=== PATIENT | male | born 1950 | race Caucasian/White ===

== ENCOUNTER 2020-11-25 17:57 | Inpatient (IN) | payer BC, MEDICARE ==
[~2020-11-25] VITALS: Ht 180.3 cm; Wt 109.1 kg
[~2020-11-25 17:57] MED LIST: GLIM2TAB6 PO; LISI-644 PO; METF-438 PO
[2020-11-25 18:46] LABS: BASOPHILS # (AUTO) 0.1 X10'3 (0-0.2); BASOPHILS % (AUTO) 0.7 % (0-1); EOSINOPHILS # (AUTO) 0.2 X10'3 (0-0.9); EOSINOPHILS % (AUTO) 1.9 % (0-6); HEMATOCRIT 22.5 % (42.0-52.0); HEMOGLOBIN 7.2 g/dl (14.0-17.9); LYMPHOCYTES # (AUTO) 1.8 X10'3 (1.1-4.8); LYMPHOCYTES % (AUTO) 22.4 % (21-51); MEAN CORPUSCULAR HEMOGLOBIN 28.3 PG (27.0-31.0); MEAN CORPUSCULAR HGB CONC 32.1 g/dL (33.0-36.5); MEAN CORPUSCULAR VOLUME 88.1 FL (78-98); MEAN PLATELET VOLUME 8.6 FL (7.4-10.4); MONOCYTES # (AUTO) 0.6 X10'3 (0-0.9); NEUTROPHILS # (AUTO) 5.5 X10'3 (1.8-7.7); PLATELET COUNT 284 X10'3 (140-440); RED BLOOD COUNT 2.55 X10'6 (4.70-6.10); RED CELL DISTRIBUTION WIDTH 15.1 % (11.5-14.5); WHITE BLOOD COUNT 8.1 X10'3 (4.5-11.0)
[2020-11-25 19:04] LABS: ALANINE AMINOTRANSFERASE 14 U/L (12-78); ALBUMIN 2.9 G/DL (3.4-5.0); ALBUMIN/GLOBULIN RATIO 0.8 (1.1-1.5); ALKALINE PHOSPHATASE 88 IU/L (46-116); ANION GAP 11 (8-16); ASPARTATE AMINO TRANSFERASE 8 U/L (10-37); BILIRUBIN,TOTAL 0.2 MG/DL (0.1-1.0); BLOOD UREA NITROGEN 26 MG/DL (7-18); BUN/CREATININE RATIO 17.3 (5.4-32.0); CALCIUM 8.1 MG/DL (8.5-10.1); CHLORIDE 104 MMOL/L (99-107); GLUCOSE 328 MG/DL (70-104); POTASSIUM 4.8 MMOL/L (3.5-5.1); SODIUM 138 MMOL/L (135-145); TOTAL CARBON DIOXIDE 23.4 MMOL/L (24-32); TOTAL PROTEIN 6.5 G/DL (6.4-8.2); eGFR 46 ML/MIN
[2020-11-25] MEDS ORDERED: pantoprazole 40 MG vial IV ONE (21:15)
[2020-11-25] MEDS ORDERED: pantoprazole 40MG/NS 100ML BAG 100 ML IV SCH (21:15)
[2020-11-25] MEDS ORDERED: normal saline 1000ml 1,000 ML IV ONE (21:15)
[2020-11-25] MEDS: pantoprazole 40MG/NS 100ML BAG 100 ML IV SCH (22:35)
[2020-11-25] MEDS ORDERED: MESSAGE TO PHARMACY PO ONE (22:50)
[2020-11-25] MEDS ORDERED: dextrose 50%-water 50ml dispensing syringe IV PRN ×2 (22:50)
[2020-11-25] MEDS: normal saline 1000ml 1,000 ML IV SCH (22:50)
[2020-11-25] MEDS ORDERED: insulin Lispro (HumaLOG) vial - multi-dose SQ SCH (22:50)
[2020-11-25] MEDS ORDERED: acetaminophen 325mg tablet PO PRN ×2 (22:50)
[2020-11-25] MEDS ORDERED: glucagon, human recombinant 1mg kit SUBCUT PRN (22:50)
[2020-11-25] MEDS ORDERED: magnesium hydroxide 30ml (MOM) UD suspension PO PRN (22:50)
[2020-11-25] MEDS ORDERED: HYDROcodone/acetaminophen 5mg/325mg tablet PO PRN (22:50)
[2020-11-25] MEDS ORDERED: mag hydrox/Alum hydrox/simeth 30ml oral suspension PO PRN (22:50)
[2020-11-25] MEDS ORDERED: ondansetron/PF 4mg/2ml inj IV PRN (22:50)
[2020-11-25] MEDS ORDERED: dextrose ORAL solution 15 GM/59 ML bottle PO PRN ×2 (22:50)
[2020-11-25] MEDS ORDERED: morphine 2 MG/ML inj. syringe IV PRN ×2 (22:50)
[2020-11-25 23:50] VITALS: BP 124/58
[2020-11-26] VITALS (9 sets, daily range): BP systolic 112–142; BP diastolic 57–70
[2020-11-26] MEDS ORDERED: CARV3.122 PO (00:12)
[2020-11-26] MEDS ORDERED: LISI40TA13 PO ×2 (00:12→14:35)
[2020-11-26] MEDS ORDERED: ASPI-1265 PO (00:12)
[2020-11-26] MEDS ORDERED: ATOR20TA66 PO (00:12)
[2020-11-26] MEDS ORDERED: TERB250T89 PO (00:12)
[2020-11-26] MEDS: pantoprazole 40MG/NS 100ML BAG 100 ML IV SCH ×3 (01:00→09:10)
[2020-11-26 05:51] LABS: OCCULT BLOOD STOOL POSITIVE (Neg)
[2020-11-26 05:57] LABS: BASOPHILS % (AUTO) 0.6 % (0-1); EOSINOPHILS # (AUTO) 0.1 X10'3 (0-0.9); HEMOGLOBIN 7.4 g/dl (14.0-17.9); LYMPHOCYTES # (AUTO) 1.7 X10'3 (1.1-4.8); MEAN CORPUSCULAR HEMOGLOBIN 28.9 PG (27.0-31.0); MEAN CORPUSCULAR HGB CONC 33.7 g/dL (33.0-36.5); MEAN CORPUSCULAR VOLUME 85.7 FL (78-98); MEAN PLATELET VOLUME 7.9 FL (7.4-10.4); MONOCYTES # (AUTO) 0.6 X10'3 (0-0.9); MONOCYTES % (AUTO) 8.9 % (2-12); NEUTROPHILS # (AUTO) 4.6 X10'3 (1.8-7.7); NEUTROPHILS % (AUTO) 64.5 % (42-75); PLATELET COUNT 242 X10'3 (140-440); RED BLOOD COUNT 2.56 X10'6 (4.70-6.10); RED CELL DISTRIBUTION WIDTH 14.5 % (11.5-14.5); WHITE BLOOD COUNT 7.2 X10'3 (4.5-11.0)
--- NOTE | 2020-11-26 06:06 | NUR ---
H/H 7.4; REPORTED TO PRIMARY RN
[2020-11-26 06:19] LABS: ALBUMIN 2.7 G/DL (3.4-5.0); ANION GAP 11 (8-16); BLOOD UREA NITROGEN 22 MG/DL (7-18); BUN/CREATININE RATIO 18.5 (5.4-32.0); CALCIUM 7.9 MG/DL (8.5-10.1); CHLORIDE 108 MMOL/L (99-107); CREATININE 1.19 MG/DL (0.60-1.10); GLUCOSE 241 MG/DL (70-104); POTASSIUM 4.4 MMOL/L (3.5-5.1); SODIUM 142 MMOL/L (135-145); TROPONIN I < 0.04 NG/ML (0.0-0.05); eGFR 61 ML/MIN
[2020-11-26] MEDS ORDERED: aspirin 81mg tab.chew PO SCH (08:00)
[2020-11-26] MEDS ORDERED: atorvastatin 20mg tablet PO SCH (08:00)
[2020-11-26] MEDS ORDERED: docusate sod 100mg capsule PO SCH (08:00)
[2020-11-26] MEDS ORDERED: terbinafine 250mg tablet PO SCH (08:00)
[2020-11-26] MEDS ORDERED: carVEDilol 3.125mg tablet PO SCH (08:00)
[2020-11-26] MEDS ORDERED: non-formulary drug (Lisinopril* 1 TAB) PO SCH (08:00)
--- NOTE | 2020-11-26 08:45 | NUR ---
dr herrmann at bedside.
[2020-11-26] MEDS: normal saline 1000ml 1,000 ML IV SCH (09:11)
[2020-11-26] MEDS ORDERED: fentaNYL/PF 50MCG/1 ML 2ML syringe ONE (11:00)
[2020-11-26] MEDS ORDERED: MIDAZolam 1 MG/ML 5ML VIAL ONE (11:00)
[2020-11-26] MEDS ORDERED: LIDOcaine Viscous 15ml cup ONE (11:00)
--- NOTE | 2020-11-26 12:30 | NUR ---
assumed care of pt from Christopher BENDER
[2020-11-26 12:39] LABS: HEMATOCRIT 23.2 % (42.0-52.0); HEMOGLOBIN 7.5 g/dl (14.0-17.9); MEAN CORPUSCULAR HEMOGLOBIN 28.3 PG (27.0-31.0); MEAN CORPUSCULAR HGB CONC 32.5 g/dL (33.0-36.5); MEAN PLATELET VOLUME 8.3 FL (7.4-10.4); PLATELET COUNT 255 X10'3 (140-440); RED BLOOD COUNT 2.66 X10'6 (4.70-6.10); WHITE BLOOD COUNT 6.8 X10'3 (4.5-11.0)
--- NOTE | 2020-11-26 12:50 | NUR ---
first contact with pt, pt is resting quietly on gurney, resp even and unlabored, lungs clear to ascultation bilaterally, skin is pink, warm and dry, radial pulse strong and regular bilaterally, left ankle and foot is swollen x1 week, pt said he twisted ankle dragging a deer, able to amb, pt has no c/o dizziness, lightheadedness, able to sit up at edge of bed without assist, waiting for bed upstairs, has been to GI lab, no evidence of bleeding
--- NOTE | 2020-11-26 14:12 | NUR ---
PT AMB WITH STEADY GAIT, NO DIZZINESS, NO LIGHTHEADEDNESS, IV X2 DC'D, CANNULAS INTACT
[2020-11-26] MEDS ORDERED: PANT-47 PO (14:16)
--- NOTE | 2020-11-26 14:19 | NUR ---
Both IV discontinued catheters intact.
[2020-11-26] MEDS ORDERED: CARV3.12 PO (14:35)
[2020-11-26] MEDS ORDERED: METF-436 PO (14:35)
[2020-11-26] MEDS ORDERED: ASPI-611 PO (14:35)
[2020-11-26] MEDS ORDERED: GLIM2TAB6 PO (14:35)
[2020-11-26] MEDS ORDERED: INSU100I31 SQ (14:44)
[2020-11-26] MEDS ORDERED: PEN1DIS.78 SQ (14:44)
[2020-11-26] MEDS ORDERED: insulin glargine (Lantus) pen - multi-dose SQ SCH (21:00)
== END 2020-11-26 16:22 | disposition home or self-care (01) | DRG 377 ==
LOC: ER 17:58 → ED HOLD 22:53 → UNDOADMIN 23:17
PROVIDERS: ADMIT Internal Medicine; ATTEND Family Medicine
PROC: 30233N1 Transfusion of Nonautologous Red Blood Cells into Peripheral Vein, Percutaneous Approach (ICD-10-PCS; 2020-11-25)
PROC: 0DB68ZX Excision of Stomach, Via Natural or Artificial Opening Endoscopic, Diagnostic (ICD-10-PCS; principal; 2020-11-26)
DX: K29.71 Gastritis, unspecified, with bleeding (principal); N17.0 Acute kidney failure with tubular necrosis; D62 Acute posthemorrhagic anemia; K50.90 Crohn's disease, unspecified, without complications; E86.0 Dehydration; E11.65 Type 2 diabetes mellitus with hyperglycemia; E11.22 Type 2 diabetes mellitus with diabetic chronic kidney disease; E78.5 Hyperlipidemia, unspecified; I12.9 Hypertensive chronic kidney disease with stage 1 through stage 4 chronic kidney disease, or unspecified chronic kidney disease; N18.30 Chronic kidney disease, stage 3 unspecified; Z79.82 Long term (current) use of aspirin; Z79.899 Other long term (current) drug therapy
CPT/HCPCS: 36415; 36430; 43239; 80048; 80053; 82272; 82948; 83036; 83880; 84145; 84484; 85025; 85027; 86885; 86900; 86901; 86920; 93005; 96361; 96374; 99152; 99285; A4620; C9113; G0378; J1815; J2250; J3010; J7030; J7040; P9016